=== PATIENT | male | born 1995 | race Caucasian/White ===

== ENCOUNTER 2021-05-05 03:10 | Emergency (ER) | payer MEDICAID ==
[~2021-05-05] VITALS: Ht 172.7 cm; Wt 78.0 kg
[2021-05-05] MEDS ORDERED: ZIPRASIDONE HCL 20MG CAPSULE PO STA (03:36)
[2021-05-05] MEDS ORDERED: DIPHENHYDRAMINE 50MG CAPSULE PO STA (03:36)
[2021-05-05 04:26] LABS: BASOPHILS % 0.7 % (0.0-2.0); EOSINOPHILS % 0.1 % (0.0-5.0); HEMATOCRIT. 47.8 % (42.0-52.0); HEMOGLOBIN. 16.5 g/dL (14.0-18.0); LYMPHOCYTES % 11.5 % (20.0-50.0); MEAN CORPUSCULAR HEMOGLOBIN 29.9 pg (28.0-32.0); MEAN CORPUSCULAR VOLUME 86.5 fL (80.0-94.0); MEAN PLATELET VOLUME 9.9 fl (7.4-10.4); MONOCYTES % 9.2 % (2.0-8.0); NEUTROPHILS % 78.5 % (40.0-76.0); PLATELET 280 x1000/uL (130-400); RED BLOOD CELL COUNT 5.52 mill/uL (4.7-6.1); RED CELL DISTRIBUTION WIDTH 13.1 % (11.6-14.6)
[2021-05-05 04:27] LABS: CHLORIDE 108 mEq/L (98-107)
[2021-05-05] MEDS ORDERED: HALOPERIDOL LACTATE 5MG/ML VIAL IM ONE (05:15)
[2021-05-05 05:17] LABS: ETHANOL BLOOD < 10 mg/dL
[2021-05-05 05:29] LABS: *AMPHETAMINES SCREEN URINE PRESUMTIVE POSITIVE (NEGATIVE); *BARBITURATES SCREEN URINE NEGATIVE (NEGATIVE); *BENZODIAZEPINES SCREEN URINE NEGATIVE (NEGATIVE); *COCAINE SCREEN URINE NEGATIVE (NEGATIVE); CANNABINOID URINE SCREEN PRESUMTIVE POSITIVE (NEGATIVE); PHENCYCLIDINE URINE SCREEN NEGATIVE (NEGATIVE)
[2021-05-05 05:30] LABS: METHADONE URINE SCREEN NEGATIVE (NEGATIVE); OPIATES URINE SCREEN NEGATIVE (NEGATIVE)
[2021-05-05 07:06] LABS: CLARITY URINE TURBID (CLEAR); COLOR URINE ORANGE (YELLOW); KETONES URINE TRACE (NEGATIVE); LEUKOCYTE ESTERASE URINE NEGATIVE (NEGATIVE); NITRITE URINE POSITIVE (NEGATIVE); OCCULT BLOOD URINE NEGATIVE (NEGATIVE); PROTEIN URINE TRACE (NEGATIVE); SPECIFIC GRAVITY URINE 1.031 (1.005-1.030); UROBILINOGEN URINE 0.2 E.U./dL (0.2-1.0)
[2021-05-05 09:40] VITALS: BP 120/60
== END 2021-05-05 10:35 | disposition home or self-care (01) ==
LOC: ER 03:10
DX: R44.3 Hallucinations, unspecified (principal); Z20.822 Contact with and (suspected) exposure to COVID-19; F12.10 Cannabis abuse, uncomplicated; F15.10 Other stimulant abuse, uncomplicated
CPT/HCPCS: 36415; 70450; 80053; 80305; 80307; 80320; 80329; 81003; 85025; 93005; 96372; 99285; C9803; J1630; U0003; U0005; Q0163; G0480